=== PATIENT | female | born 1975 | race Two or more races ===

== ENCOUNTER 2021-05-09 16:33 | Emergency (ER) | payer BC, OTHER ==
[2021-05-09 16:55] VITALS: BP 118/75; PULSE 75; TEMP 98.4; BMI 19.9
[2021-05-09] MEDS ORDERED: BACITRACIN 0.9 GM PACKET TP ONE (17:36)
[2021-05-09] MEDS ORDERED: DIPHTH,PERTUSS(ACELL),TET 0.5 ML DISP.SYRIN IM ONE ×2 (17:36→17:40)
[2021-05-09] MEDS ORDERED: IBUPROFEN 600 MG TABLET (FP) PO ONE ×2 (17:36→17:40)
== END 2021-05-09 18:08 | disposition home or self-care (01) ==
LOC: JERFT 16:33
PROC: 3E0234Z Introduction of Serum, Toxoid and Vaccine into Muscle, Percutaneous Approach (ICD-10-PCS; principal; 2021-05-09)
DX: T20.00XA Burn of unspecified degree of head, face, and neck, unspecified site, initial encounter (principal); T22.211A Burn of second degree of right forearm, initial encounter; T22.212A Burn of second degree of left forearm, initial encounter; X19.XXXA Contact with other heat and hot substances, initial encounter; Y92.9 Unspecified place or not applicable
CPT/HCPCS: 90715; 99283-25